=== PATIENT | male | born 1965 | race Caucasian/White ===

== ENCOUNTER 2023-03-17 06:04 | Emergency (ER) | payer OTHER, SELFPAY ==
[2023-03-17 06:10] VITALS: BP 177/86; PULSE 68; RESP 18; TEMP 36.4; O2SAT 97; BMI 31.8
--- NOTE | 2023-03-17 06:22 | CRLHL7_ITS ---
For Patients: As a result of the Century Cures Act, medical imaging exams and procedure reports are released immediately into your electronic medical record. You may view this report before your referring provider. If you have questions, please contact your health care provider. INDICATION: left flank pain since 15:30 yesterday TECHNIQUE: CT abdomen and pelvis without contrast, stone protocol. COMPARISON: December 16, 2022 FINDINGS: Kidney/ureters: Punctate bilateral intrarenal calculi. There is a 3 mm stone within the distal left ureter resulting in mild hydroureteronephrosis and periureteral inflammation. The bladder is decompressed. Liver/gallbladder/bile ducts: Hepatomegaly and hepatic steatosis. Gallbladder is normal without visualized stones or inflammation. No biliary dilatation. Spleen/pancreas/adrenal glands: Supraglottic calcified granuloma within the spleen. Adrenal glands and pancreas are within normal limits. GI tract: No evidence of bowel obstruction or inflammation. Normal appendix. Abdominal wall/omentum/peritoneum: No free air or significant free fluid. No mass or inflammation. Lymph nodes: No lymphadenopathy. Vessels: Abdominal aorta normal caliber with mild aortoiliac atherosclerosis. Pelvis: Unremarkable pelvis. Lower chest: Unremarkable. See IMPRESSION: There is a 3 mm stone within the distal left ureter resulting in mild hydroureteronephrosis and periureteral inflammation. Punctate bilateral intrarenal calculi. Please note that all CT scans at this facility use dose modulation, iterative reconstruction, and/or weight-based dosing when appropriate to reduce radiation dose to as low as reasonably achievable. Dictated by Lg Mason MD @ 03/17/2023 7:15:58 AM (Electronically Signed)
--- NOTE | 2023-03-17 06:24 | ED_ITS ---
HPI - General Adult General Chief complaint: Flank Pain Stated complaint: kidney stone Time Seen by Provider: 03/17/23 06:07 Source: patient Mode of arrival: ambulatory Limitations: no limitations History of Present Illness HPI narrative: 57-year-old male presents the emergency department with a 24 hour history of left flank pain. Reports that symptoms started yesterday morning and were initially intermittent. Did improve after he tried taking 3 ibuprofen but the pain has come back. Worsening overnight. It has traveled from the left posterior lower rib area to now the left lower back area that radiates into the left groin. He had 1 episode of hematuria yesterday but that has since resolved. Denies fever, denies nausea and vomiting. No injury or trauma. He has had kidney stones multiple times in the past and reports a history a lithotripsy and stenting as well. He has had an MRI of his lower back within the last few months but no recent CT scans. No dysuria, no urinary frequency. Nonsmoker. He also did try an [id number] pain reliever called kratom with no improvement. No bowel changes. Past medical history notable for hypertension. Home medications amlodipine and lisinopril. No known drug allergies. Nonsmoker. No pertinent travel. ROS is notable for the urinary symptoms as described above only, otherwise denies times 12 systems. Related Data Home Medications Medication Instructions Recorded Confirmed lisinopril 5 mg tablet 5 mg PO DAILY 03/17/23 03/17/23 Previous Rx's Medication Instructions Recorded amlodipine 5 mg tablet 5 mg PO DAILY #30 tabs 12/17/22 hydrocodone 5 mg-acetaminophen 325 1 tab PO Q6H PRN #10 tabs 12/17/22 mg tablet losartan 50 mg tablet 50 mg PO DAILY #30 tabs 12/17/22 methylprednisolone 4 mg tablets in See Rx Instructions PO .COMPLEX 12/17/22 a dose pack (Medrol (Kwame)) #21 ea Allergies Allergy/AdvReac Type Severity Reaction Status Date / Time No Known Drug Allergies Allergy Verified 12/16/22 12:05 [facility] Medical History Sleep apnea ?G47.30 - Sleep apnea, unspecified (ICD-10) Hepatic steatosis ?K76.0 - Fatty (change of) liver, not elsewhere classified (ICD-10) Chronic headaches ?R51.9 - Headache, unspecified (ICD-10) ?G89.29 - Other chronic pain (ICD-10) History of adenomatous polyp of colon ?Z86.010 - Personal history of colonic polyps (ICD-10) Nephrolithiasis ?N20.0 - Calculus of kidney (ICD-10) Sciatica ?M54.30 - Sciatica, unspecified side (ICD-10) Surgical History History of lithotripsy ?Z98.890 - Other specified postprocedural states (ICD-10) Family History Father Nephrolithiasis Other Lung cancer Social History Narrative: Patient lives with his and 10-year-old daughter in [place]. 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 Former history of smoking but does not currently smoke. Drinks alcohol about once a year. Does not use recreational drugs except he has occasionally used THC gummies to address his back pain. Highest level of school completed/degree received: high school graduate Smoking Status: Never smoker Do you use any of these nicotine containing products: None How often do you have a drink containing alcohol: monthly or less AUDIT-C Alcohol total score: 1 Non-prescribed substance use: denies use Caffeine: Yes service: No Exam Const: Vital Signs, click to edit/add: Vital Signs - 24 hr 03/17/23 06:10 03/17/23 06:25 Temperature 97.6 F 97.6 F Pulse Rate [Left P ulse Oximeter] 68 Respiratory Rate 18 Blood Pressure [Ri ght Upper Arm] 177/86 H Pulse Oximetry 97 Oxygen Delivery Me thod Room Air Documenting provider has reviewed patient's vital signs: yes Common normals: alert General appearance: cooperative and well kempt Orientation/consciousness: Yes awake Other: Good historian. Cooperative. Appears well nourished and hydrated but does seem to be in true pain. HENMT: Common normals: normocephalic Head and scalp: normocephalic Face and sinus: normal facial exam Mouth: oral and palatal mucosa normal Throat: posterior oropharynx normal Eye: Common normals: conjunctivae normal General eye: normal appearance of both eyes Conjunctiva: conjunctiva(e) normal Resp: Common normals: normal respiratory effort, no use of accessory muscles and clear to auscultation bilaterally Effort & inspection: able to speak in complete sentences Auscultation: clear to auscultation bilaterally Cardio: Common normals: regular rate, regular rhythm, S1 normal heart sound, S2 normal heart sound and no murmurs Rate: regular rate Rhythm: regular rhythm Heart sounds: S1 normal and S2 normal GI: Common normals: Normal to inspection, nondistended, normoactive bowel sounds present, soft to palpation, non-tender, no hepatosplenomegaly and no masses Palpation: soft and no hepatosplenomegaly Back & Pelvis: Other: Lumbar spine normal to appearance. No CVA tenderness. There is tenderness to palpation around the left mid lower back lateral area, no guarding. Extremity: Common normals: normal capillary refill and no pedal edema Neuro: Sensorium/orientation: awake and alert Speech: speech normal Gait (neuro): normal gait Psych: Common normals: thought process normal Appearance: well kempt Activity/motor behavior: appropriate eye contact Thought process: normal thought process Insight: insight good Judgement: judgment good Skin: Common normals: no rashes or lesions noted General skin exam: no rashes or lesions noted Course Course Hospital Course: Differential diagnosis including musculoskeletal pain, sciatica, constipation, intra-abdominal process, kidney stone, urinary infection, among others. High risk for kidney stone based on history, recommend pursuing this avenue 1st. Will [address] IV, give 50 mg of IV Toradol, 4 mg of Zofran. Await urinalysis. CT scan of abdomen and pelvis without contrast. Preliminary plan discussed with patient. Reevaluation(s) Time of Reevaluation #1: 07:36 Reevaluation #1: Labs and imaging findings reviewed with patient. 3 mm distal left ureteral stone as expected. There is some [id number] hydronephrosis but no signs of severe dysfunction. Good creatinine, no white count, no fever. He did get good pain relief from the Toradol. Counseled on pain management. He does have Flomax at home and took a dose yesterday. He is counseled to continue taking this once daily. Tylenol 1000 mg every 6 hours, Toradol 10 mg p.o. q.6 hours. Next eligible dose 1:00 p.m., discussed. Alarm symptoms reviewed that would warrant ED presentation. All questions answered. Vital Signs Vital signs: Initial Vital Signs Temperature 97.6 F 03/17/23 06:10 Temperature Source Temporal Artery Scan 03/17/23 06:10 Pulse Rate 68 03/17/23 06:10 Respiratory Rate 18 03/17/23 06:10 Blood Pressure 177/86 H 03/17/23 06:10 Blood Pressure Mean 116 H 03/17/23 06:10 Blood Pressure Position Sitting 03/17/23 06:10 Pulse Oximetry 97 03/17/23 06:10 Oxygen Delivery Method Room Air 03/17/23 06:10 Vital Signs Temperature 97.6 F 03/17/23 06:10 Pulse Rate 68 03/17/23 06:10 Respiratory Rate 18 03/17/23 06:10 Blood Pressure 177/86 H 03/17/23 06:10 Pulse Oximetry 97 03/17/23 06:10 Oxygen Delivery Method Room Air 03/17/23 06:10 Temperature 97.6 F 03/17/23 06:25 Pulse Rate 68 03/17/23 06:10 Respiratory Rate 18 03/17/23 06:10 Blood Pressure 177/86 H 03/17/23 06:10 Pulse Oximetry 97 03/17/23 06:10 Oxygen Delivery Method Room Air 03/17/23 06:10 Medical Decision Making Lab Data Lab results reviewed: Yes I reviewed the patient's lab results Lab results narrative: Reassuring Labs: Lab Results 03/17/23 Range/Units 06:22 WBC 5.32 (4.50-11.00) K/uL RBC 4.35 (4.30-5.90) m/uL Hgb 13.0 L (13.5-17.5) gm/dL Hct 38.8 (37.0-53.0) % MCV 89 (80-100) fL MCH 30 (26-34) pg MCHC 34 (32-36) gm/dL RDW Coeff of Danelle 12.6 (11.5-15.5) % Plt Count 191 (140-440) K/uL Neut % (Auto) 40.3 L (42.0-72.0) % Lymph % (Auto) 47.7 H (20-44) % [place] % (Auto) 8.8 (0.0-11.0) % Eos % (Auto) 2.6 (0.0-7.0) % Baso % (Auto) 0.6 (0.0-3.0) % Neut # (Auto) 2.10 (1.7-7.0) K/uL Lymph # (Auto) 2.50 (0.90-2.90) K/uL [place] # (Auto) 0.50 (0.00-0.90) K/UL Eos # (Auto) 0.14 (0.00-0.50) K/uL Baso # (Auto) 0.03 (0.00-0.30) K/uL Abs Immat Gran (auto) 0.00 (0.00-0.30) K/uL Imm/Tot Granulo (auto) 0.0 % Sodium 138 (135-149) mmol/L Potassium 4.0 (3.6-5.1) mmol/L Chloride 106 (96-114) mmol/L Carbon Dioxide 24 (20-32) mmol/L Anion Gap 8 (7-15) mEq/L BUN 24 (7-30) mg/dL Creatinine 0.8 (0.5-1.5) mg/dL Estimated Creat Clear 85.31 Estimated GFR 103 ml/min Glucose 122 H (60-115) mg/dL Calcium 8.5 (8.4-10.6) mg/dL C-Reactive Protein < 0.5 L (0.5-1.0) mg/dL Imaging Data CT scan - abdomen: Attestation: I have reviewed the pertinent imaging results. My impression: Small distal ureter stone, hydronephrosis noted Radiologist's impression: IMPRESSION: There is a 3 mm stone within the distal left ureter resulting in mild hydroureteronephrosis and periureteral inflammation. Punctate bilateral intrarenal calculi. Discharge Plan Discharge Clinical Impression: Calculus of distal left ureter Patient Disposition: Home w/ Parent or Adult Condition: Improved Instructions: Ureteral Stones (ED) Additional Instructions: As we discussed, you have a small kidney stone on your left side about [address] bladder[address] This is 3 mm in size and should pass without any intervention or complication. Typically these pass within a week. As we discussed, you should come back to the emergency room if you start having high fevers, severe weakness or severe pain. Some continued blood in your urine may be common. Your given Toradol for pain. I have given you a supply of this through the pharmacy vending machine as well. You are eligible for another dose of this at 1:00 p.m.. Keep taking the Toradol every 6 hours as needed for discomfort. You should also be taking Tylenol every 6 hours as well. Proper dosing of Tylenol as 1000 mg every 6 hours. It often works best to alternate between the 2 every 3 hours. You mention that you do still have some Flomax at home. Continue taking this once daily to help the stone pass. It will also help cut down on the spasm pain. Push fluids. You should be urinating at least 6 times daily. You do not need to strain your urine or returned this stone for analysis. You may return to full work duty. Activity Level: No Restrictions Discharge Diet: Regular Prescriptions: No Action hydrocodone-acetaminophen 5-325 mg Tablet 1 tab PO Q6H PRNQty: 10 0RF amlodipine 5 mg Tablet 5 mg PO DAILY Qty: 30 0RF losartan 50 mg tablet 50 mg PO DAILY Qty: 30 0RF methylprednisolone [Medrol (Kwame)] 4 mg tablets,dose pack See Rx Instructions .ROUTE .COMPLEX Qty: 21 0RF Rx Instructions: orally per package directions lisinopril 5 mg tablet 5 mg PO DAILY Follow Up/Referrals: Khanh Heard MD [Primary Care Provider] - Stand Alone Forms: [employer] Info Instructions
[2023-03-17 06:25] VITALS: TEMP 36.4
[2023-03-17] MEDS: KETOROLAC 15 MG/ML inj IVP (06:25)
[2023-03-17] MEDS: ONDANSETRON 2 MG/ML inj 4 MG IVP (06:32)
[2023-03-17 06:38] LABS: Basophils Absolute Auto 0.03 K/uL (0.00-0.30); Basophils Percent Auto 0.6 % (0.0-3.0); Eosinophils Absolute Auto 0.14 K/uL (0.00-0.50); Eosinophils Percent Auto 2.6 % (0.0-7.0); Hematocrit 38.8 % (37.0-53.0); Lymphocytes Percent Auto 47.7 % (20-44); Mean Corpuscular HGB Conc 34 gm/dL (32-36); Mean Corpuscular Hemoglobin 30 pg (26-34); Mean Corpuscular Volume 89 fL (80-100); Monocytes Percent Auto 8.8 % (0.0-11.0); Neutrophils Percent Auto 40.3 % (42.0-72.0); Platelet Count* 191 K/uL (140-440); RDW Coefficient of Variation % 12.6 % (11.5-15.5); Red Blood Count 4.35 m/uL (4.30-5.90); White Blood Count* 5.32 K/uL (4.50-11.00)
[2023-03-17 06:47] LABS: Slide Review Reflex No
[2023-03-17 06:52] LABS: Chloride* 106 mmol/L (96-114); Sodium* 138 mmol/L (135-149)
[2023-03-17 06:55] LABS: Creatinine* 0.8 mg/dL (0.5-1.5); Est. Creatinine Clearance* 85.31; Estimated Glomerular Filt Rate 103 ml/min
[2023-03-17 06:56] LABS: Anion Gap 8 mEq/L (7-15); Blood Urea Nitrogen* 24 mg/dL (7-30); Carbon Dioxide* 24 mmol/L (20-32); Glucose* 122 mg/dL (60-115)
[2023-03-17 06:57] LABS: Calcium* 8.5 mg/dL (8.4-10.6)
[2023-03-17 07:01] LABS: C Reactive Protein* < 0.5 mg/dL (0.5-1.0)
[2023-03-17 07:55] VITALS: BP 140/84; PULSE 65; RESP 16; TEMP 36.1; O2SAT 94
--- NOTE | 2023-03-17 07:56 | ED.NURSE ---
Patient discharged from ER. [facility] script for toradol provided. Work note for today provided. PIV taken out and catheter intact. All questions answered. Left via ambulatory.
[2023-03-17 07:59] LABS: Appearance Urine Clear (Clear); Bilirubin Urine Negative (Negative); Blood Urine 3+ (Negative); Color Urine Yellow (Yellow); Glucose Urine Negative (Negative); Ketones Urine Negative (Negative); Leukocyte Esterase Urine Negative (Negative); Nitrite Urine Negative (Negative); Protein Urine Negative (Negative); Specific Gravity Urine >= 1.030 (1.000-1.030); Urobilinogen Urine 0.2 (0.2-1.0); pH Urine 6.5 (5.0-8.5)
[2023-03-17 08:20] LABS: Bacteria Urine Few; Squamous Epithelial Cell Urine Few (None-Few)
[2023-03-17 08:21] LABS: Mucus Urine Few
== END 2023-03-17 07:57 | disposition home or self-care (01) ==
PROVIDERS: Emergency Provider Family Medicine; PCP Family Medicine
DX: N20.1 Calculus of ureter (principal)
CPT/HCPCS: 36415; 74176; 80048; 81003; 81015; 85025; 86140; 87086; 96374; 96375; 99284; J1885; J2405

== ENCOUNTER 2023-03-19 19:16 | Emergency (ER) | payer OTHER, SELFPAY ==
[2023-03-19 19:19] VITALS: BP 200/70; PULSE 86; RESP 22; TEMP 36.7; O2SAT 98; BMI 31.8
[2023-03-19] MEDS: OXYCODONE 5 MG TABLET PO (19:51)
[2023-03-19 20:06] VITALS: BP 148/109; PULSE 76; O2SAT 98
--- NOTE | 2023-03-19 20:09 | ED.GENADULT ---
HPI - General Adult General Date Seen: 03/19/23 Chief complaint: Flank Pain Stated complaint: Kidney stone Time Seen by Provider: 03/19/23 19:26 Source: patient Mode of arrival: ambulatory Limitations: no limitations History of Present Illness HPI narrative: Patient is a 57-year-old male with a history of kidney stones and hypertension presented emergency department for left flank pain. His in emergency department 2 days ago and was diagnosed with a 3 mm nephrolithiasis with hydronephrosis on the left. He was sent home on Toradol he says the Toradol does not help with his pain at all and just makes him dizzy. States he cannot get the pain under control at this time. Has had multiple kidney stones in the past since. Denies seen a urologist at this time. Previously has seen male clinic and has had multiple lithotripsies done. Patient denies any dysuria, fevers, chills, chest pain, shortness of breath, weakness, numbness, diarrhea, constipation. The states he had episode of left groin pain earlier today that has since resolved. States the pain today seems worse than it did 2 days ago. Related Data Home Medications Medication Instructions Recorded Confirmed lisinopril 5 mg tablet 5 mg PO DAILY 03/17/23 03/17/23 Previous Rx's Medication Instructions Recorded amlodipine 5 mg tablet 5 mg PO DAILY #30 tabs 12/17/22 hydrocodone 5 mg-acetaminophen 325 1 tab PO Q6H PRN #10 tabs 12/17/22 mg tablet losartan 50 mg tablet 50 mg PO DAILY #30 tabs 12/17/22 methylprednisolone 4 mg tablets in See Rx Instructions PO .COMPLEX 12/17/22 a dose pack (Medrol (Kwame)) #21 ea Allergies Allergy/AdvReac Type Severity Reaction Status Date / Time No Known Drug Allergies Allergy Verified 03/19/23 19:21 [facility] Medical History Sleep apnea ?G47.30 - Sleep apnea, unspecified (ICD-10) Hepatic steatosis ?K76.0 - Fatty (change of) liver, not elsewhere classified (ICD-10) Chronic headaches ?R51.9 - Headache, unspecified (ICD-10) ?G89.29 - Other chronic pain (ICD-10) History of adenomatous polyp of colon ?Z86.010 - Personal history of colonic polyps (ICD-10) Nephrolithiasis ?N20.0 - Calculus of kidney (ICD-10) Sciatica ?M54.30 - Sciatica, unspecified side (ICD-10) Surgical History History of lithotripsy ?Z98.890 - Other specified postprocedural states (ICD-10) Family History Father Nephrolithiasis Other Lung cancer Social History Narrative: Patient lives with his and 10-year-old daughter in [place]. 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 Former history of smoking but does not currently smoke. Drinks alcohol about once a year. Does not use recreational drugs except he has occasionally used THC gummies to address his back pain. Highest level of school completed/degree received: high school graduate Smoking Status: Never smoker Do you use any of these nicotine containing products: None How often do you have a drink containing alcohol: monthly or less AUDIT-C Alcohol total score: 1 Non-prescribed substance use: denies use Caffeine: Yes service: No Exam Narrative: Exam Narrative: Const: Well-nourished, Well-developed, in moderate distress Eyes: PERRL, no conjunctival injection, and symmetrical lids ENMT: Atraumatic external nose and ears. Moist mucous membranes. Neck: Symmetric, trachea midline, No thyromegaly. CVS: RRR, No murmurs or gallops. Peripheral pulses 2+ and equal in all extremities RESP: Unlabored respiratory effort. Clear to auscultation bilaterally. GI: Nontender/Nondistended, No rebound or guarding. Left CVA tenderness MSK:Extremities w/o deformity, Normal Active ROM Skin: Warm, Dry. No rashes or lesions. Neuro: Normal Muscle tone, No focal neurological deficits. Psych: Awake, Alert, & Oriented x3. Appropriate mood and affect. Const: Vital Signs, click to edit/add: Vital Signs - 24 hr 03/19/23 19:19 03/19/23 20:06 Temperature 98.0 F Pulse Rate [Right Pulse Oximeter] 86 76 Respiratory Rate 22 Blood Pressure [Ri ght Upper Arm] 200/70 H 148/109 H Pulse Oximetry 98 98 Oxygen Delivery Me thod Room Air Room Air Course Vital Signs Vital signs: Initial Vital Signs Temperature 98.0 F 03/19/23 19:19 Temperature Source Temporal Artery Scan 03/19/23 19:19 Pulse Rate 86 03/19/23 19:19 Pulse Rhythm Regular 03/19/23 19:19 Pulse Strength 3+ Normal 03/19/23 19:19 Respiratory Rate 22 03/19/23 19:19 Blood Pressure 200/70 H 03/19/23 19:19 Blood Pressure Mean 113 H 03/19/23 19:19 Blood Pressure Position Sitting 03/19/23 19:19 Pulse Oximetry 98 03/19/23 19:19 Oxygen Delivery Method Room Air 03/19/23 19:19 Vital Signs Temperature 98.0 F 03/19/23 19:19 Pulse Rate 86 03/19/23 19:19 Respiratory Rate 22 03/19/23 19:19 Blood Pressure 200/70 H 03/19/23 19:19 Pulse Oximetry 98 03/19/23 19:19 Oxygen Delivery Method Room Air 03/19/23 19:19 Temperature 98.0 F 03/19/23 19:19 Pulse Rate 76 03/19/23 20:06 Respiratory Rate 22 03/19/23 19:19 Blood Pressure 148/109 H 03/19/23 20:06 Pulse Oximetry 98 03/19/23 20:06 Oxygen Delivery Method Room Air 03/19/23 20:06 Medical Decision Making [facility] Narrative Medical decision making narrative: Patient is a 57-year-old male presenting emergency department for left flank pain. He has a known 3 mm kidney stone seen on previous CT 2 days prior. Says the Toradol he was discharged home with is not managing his pain adequately. He is not having any systemic symptoms at this time. To do this I do not believe lab work is necessary or repeat imaging. The kidney stone is small and most of likely does not need any intervention on signs and pain control. An oral oxycodone was given. This mildly improved his symptoms. Since he still having a moderate amount of pain we will also try some Toradol. After the Toradol he is feeling much better and is agreeable for discharge. She will be sent oxycodone through [facility]. He is agreeable to this plan. Discharge Plan Discharge Clinical Impression: Calculus of distal left ureter Patient Disposition: Home, Self-Care Condition: Stable Instructions: Ureteral Stones (ED) Additional Instructions: He can take the oxycodone along with the Toradol or ibuprofen for pain. Do not take Toradol and ibuprofen at the same time. Follow-up with the urologist. Return for new worsening symptoms. Prescriptions: No Action hydrocodone-acetaminophen 5-325 mg Tablet 1 tab PO Q6H PRNQty: 10 0RF amlodipine 5 mg Tablet 5 mg PO DAILY Qty: 30 0RF losartan 50 mg tablet 50 mg PO DAILY Qty: 30 0RF methylprednisolone [Medrol (Kwame)] 4 mg tablets,dose pack See Rx Instructions .ROUTE .COMPLEX Qty: 21 0RF Rx Instructions: orally per package directions lisinopril 5 mg tablet 5 mg PO DAILY Follow Up/Referrals: JOHANNA HAWKINS DO [Primary Care Provider] - Stand Alone Forms: [employer] Info Instructions
[2023-03-19] MEDS: KETOROLAC 15 MG/ML inj IVP (20:50)
[2023-03-19 21:11] VITALS: BP 137/79
== END 2023-03-19 21:15 | disposition home or self-care (01) ==
PROVIDERS: Emergency Provider Student in an Organized Health Care Education/Training Program; PCP Student in an Organized Health Care Education/Training Program
DX: N20.1 Calculus of ureter (principal)
CPT/HCPCS: 36415; 96374; 99283; A9270; J1885

== ENCOUNTER 2023-09-06 21:14 | Emergency (ER) | payer OTHER, SELFPAY ==
[2023-09-06] VITALS (9 sets, daily range): BP systolic 137–168; BP diastolic 81–88; PULSE 64–74; RESP 18; TEMP 36.6; O2SAT 93–97; BMI 31.8
--- NOTE | 2023-09-06 21:56 | XR_ITS ---
Final Report Patient: DENISE DELCID Facility:?[facility] Patient ID:?[id number] Site Patient ID:?[id number]. Site :?[id number] Study:?XRay Chest 2V-09/06/2023 11:32:37 PM Ordering Physician:IVANA Final Report: INDICATION: Chest pain TECHNIQUE: Chest radiograph 2 views COMPARISON: None FINDINGS: Mediastinum: The mediastinum is normal in appearance. The heart silhouette is normal in size and morphology. Lung: Small lung volumes are present with mild infrahilar subsegmental atelectasis bilaterally. No sign of pleural effusion seen. No pneumothorax is identified. Bone and Soft tissue: Unremarkable for age. IMPRESSION: 1. Small lung volumes are present with mild infrahilar subsegmental atelectasis bilaterally. Dictated by Elias Brennan MD @ 09/06/2023 11:37:57 PM Dictated by: Elias Brennan MD @ 09/06/2023 23:38:05 (Electronic Signature)
[2023-09-06 22:04] LABS: Basophils Absolute Auto 0.03 K/uL (0.00-0.30); Basophils Percent Auto 0.4 % (0.0-3.0); Eosinophils Absolute Auto 0.13 K/uL (0.00-0.50); Eosinophils Percent Auto 1.9 % (0.0-7.0); Hematocrit 40.9 % (37.0-53.0); Immature Granulocytes Abs Auto 0.01 K/uL (0.00-0.30); Immature Granulocytes Pct Auto 0.1 %; Lymphocytes Percent Auto 57.8 % (20-44); Mean Corpuscular HGB Conc 34 gm/dL (32-36); Mean Corpuscular Hemoglobin 30 pg (26-34); Mean Corpuscular Volume 89 fL (80-100); Monocytes Percent Auto 7.6 % (0.0-11.0); Neutrophils Percent Auto 32.2 % (42.0-72.0); Platelet Count* 193 K/uL (140-440); RDW Coefficient of Variation % 12.7 % (11.5-15.5); Red Blood Count 4.62 m/uL (4.30-5.90); White Blood Count* 6.95 K/uL (4.50-11.00)
[2023-09-06 22:06] LABS: Slide Review Reflex No
[2023-09-06] MEDS: ASPIRIN 81 MG TAB.CHEW 324 MG PO (22:08)
[2023-09-06 22:12] LABS: Albumin* 4.6 g/dL (3.3-5.0); Chloride* 103 mmol/L (96-114)
[2023-09-06 22:13] LABS: INR 0.91 (0.91-1.10); Potassium* 3.5 mmol/L (3.6-5.1); Prothrombin Time 12.8 Seconds; Sodium* 137 mmol/L (135-149)
[2023-09-06 22:14] LABS: Partial Thromboplastin Time* 29 Seconds (23-33)
[2023-09-06 22:15] LABS: Alkaline Phosphatase* 86 U/L (40-150); Anion Gap 12 mEq/L (7-15); Aspartate Amino Transferase* 31 U/L (12-35); Bilirubin Direct* 0.1 mg/dL (0.0-0.5); Bilirubin Total* 0.4 mg/dL (0.1-1.5); Blood Urea Nitrogen* 22 mg/dL (7-30); Carbon Dioxide* 22 mmol/L (20-32); Creatinine* 0.7 mg/dL (0.5-1.5); Est. Creatinine Clearance* 97.49; Estimated Glomerular Filt Rate 107 ml/min; Total Protein* 8.1 g/dL (6.0-8.3)
[2023-09-06 22:16] LABS: Alanine Aminotransferase* 44 U/L (4-50); Calcium* 9.4 mg/dL (8.4-10.6); Glucose* 174 mg/dL (60-115); Lipase* 289 U/L (23-300)
[2023-09-06 22:17] LABS: D Dimer Quantitative* 0.35 ug/ml (0.00-0.50)
[2023-09-06] MEDS: 0.9 % SODIUM CHLORIDE 1000 ml 1,000 ML IV (22:26)
[2023-09-06 22:37] LABS: NT Pro B Type NatriureticPept* < 20 pg/mL
[2023-09-06 22:47] LABS: PCR FLU A Negative PCR FLU A (Negative); PCR FLU B Negative PCR FLU B (Negative); PCR RSV Negative PCR RSV (Negative); SARS PCR* Negative SARS-CoV-2 (Negative)
--- NOTE | 2023-09-06 22:52 | ED.CHESTPAIN ---
HPI - Chest Pain General Date Seen: 09/06/23 Chief Complaint: Chest Pain Stated Complaint: chest pain Time Seen by Provider: 09/06/23 21:22 Source: patient and family Mode of arrival: ambulatory Limitations: no limitations History of Present Illness HPI narrative: Patient is a 57-year-old gentleman who presents here with his family for chest pain, and high blood pressure he was at home approximately 2-1/2 hours ago and noted he had some chest pain across his chest this occurred at rest, his was associated with elevation of his blood pressure up into the 160 range, he took an extra dose of his lisinopril 5 mg for this. And checked his blood pressure again he reports to me that his chest pain is improved, he does not have any pain that goes to his back or up into his neck or into his arms adjust sits on his chest, not made worse by taking deep breaths and coughing or other issues. Denies any radiation to his back associated with this. Does not feel like he syncopal and has no shortness of breath. No pre-existing history of any coronary artery disease, but does have risk factors including stop smoking 11 years ago, hypertension, prediabetes, elevated cholesterol, and a family history of his father having cardiac issues in his 60s. MD complaint: chest pain Prior episodes: No Onset: during rest Treatment prior to arrival: none Risk Factors Thoracic aortic dissection risk factors: none Related Data Home Medications Medication Instructions Recorded Confirmed lisinopril 5 mg tablet 5 mg PO DAILY 03/17/23 03/17/23 Previous Rx's Medication Instructions Recorded amlodipine 5 mg tablet 5 mg PO DAILY #30 tabs 12/17/22 Allergies Allergy/AdvReac Type Severity Reaction Status Date / Time No Known Drug Allergies Allergy Verified 03/19/23 19:21 Review of Systems Status of ROS Reports: 10 or more systems reviewed and unremarkable except as noted in History and below [facility] Medical History Sleep apnea ?G47.30 - Sleep apnea, unspecified (ICD-10) Hepatic steatosis ?K76.0 - Fatty (change of) liver, not elsewhere classified (ICD-10) Chronic headaches ?R51.9 - Headache, unspecified (ICD-10) ?G89.29 - Other chronic pain (ICD-10) History of adenomatous polyp of colon ?Z86.010 - Personal history of colonic polyps (ICD-10) Nephrolithiasis ?N20.0 - Calculus of kidney (ICD-10) Sciatica ?M54.30 - Sciatica, unspecified side (ICD-10) Surgical History History of lithotripsy ?Z98.890 - Other specified postprocedural states (ICD-10) Family History Father Nephrolithiasis Other Lung cancer Social History Narrative: Patient lives with his and 10-year-old daughter in [place]. 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 Former history of smoking but does not currently smoke. Drinks alcohol about once a year. Does not use recreational drugs except he has occasionally used THC gummies to address his back pain. Highest level of school completed/degree received: high school graduate Smoking Status: Former smoker Do you use any of these nicotine containing products: None How often do you have a drink containing alcohol: monthly or less AUDIT-C Alcohol total score: 1 Non-prescribed substance use: denies use Caffeine: Yes service: No Exam Narrative Exam Narrative: Patient is seen in room 5 he is in no apparent distress his pupils are equal round reactive to light there is no scleral icterus redness is TMs are normal his oropharynx is normal, cranial nerves 3-12 are normal his neck is supple full range of motion with no lymphadenopathy, chest is good air entry bilateral with no wheezing crackles noted his heart sounds are normal no clicks murmurs or gallops his abdomen is soft and obese there is no guarding no organomegaly bowel sounds are normal there is no CVA tenderness, he moves all extremities independently well with absence of any edema swelling of his lower extremities, negative Homans sign normal pulses, he is neurologically intact in his upper lower extremities and symmetrical bilaterally. Const Vital Signs, click to edit/add: Vital Signs - 24 hr 09/06/23 21:29 09/06/23 21:36 09/06/23 21:45 Temperature 97.8 F Pulse Rate 70 68 Pulse Rate [Pulse Oximeter] 68 Respiratory Rate 18 Blood Pressure Blood Pressure [Right Upper Arm] 168/88 H Pulse Oximetry 96 96 97 Oxygen Delivery Method Room Air 09/06/23 22:00 09/06/23 22:15 09/06/23 22:25 Temperature Pulse Rate 73 74 72 Pulse Rate [Pulse Oximeter] Respiratory Rate Blood Pressure 143/87 H Blood Pressure [Right Upper Arm] Pulse Oximetry 95 93 93 Oxygen Delivery Method 09/06/23 22:30 09/06/23 22:42 09/06/23 22:45 Temperature Pulse Rate 71 64 67 Pulse Rate [Pulse Oximeter] Respiratory Rate Blood Pressure 137/81 Blood Pressure [Right Upper Arm] Pulse Oximetry 93 94 95 Oxygen Delivery Method Documenting provider has reviewed patient's vital signs: yes Course Course ED Course: Patient had no further chest pain, EKG 2nd did not show any acute changes, 2nd troponin was 000s, at this point I believe we can safely discharge him home, he will take 81 mg of aspirin, and follow-up within the next 10 days with his primary care he was reassured by his blood pressure coming down nicely. I think it would however if he has increased chest pain to come back and be seen, he does have some significant risk factors that he needs to work on. Vital Signs Vital signs: Initial Vital Signs Temperature 97.8 F 09/06/23 21:29 Temperature Source Temporal Artery Scan 09/06/23 21:29 Pulse Rate 68 09/06/23 21:29 Pulse Rhythm Regular 09/06/23 21:29 Respiratory Rate 18 09/06/23 21:29 Blood Pressure 168/88 H 09/06/23 21:29 Blood Pressure Mean 114 H 09/06/23 21:29 Blood Pressure Position Sitting 09/06/23 21:29 Pulse Oximetry 96 09/06/23 21:29 Oxygen Delivery Method Room Air 09/06/23 21:29 Vital Signs Temperature 97.8 F 09/06/23 21:29 Pulse Rate 68 09/06/23 21:29 Respiratory Rate 18 09/06/23 21:29 Blood Pressure 168/88 H 09/06/23 21:29 Pulse Oximetry 96 09/06/23 21:29 Oxygen Delivery Method Room Air 09/06/23 21:29 Temperature 97.8 F 09/06/23 21:29 Pulse Rate 67 09/06/23 22:45 Respiratory Rate 18 09/06/23 21:29 Blood Pressure 137/81 09/06/23 22:42 Pulse Oximetry 95 09/06/23 22:45 Oxygen Delivery Method Room Air 09/06/23 21:29 Medications Administered Medications: Discontinued Medications Generic Name Dose Route Start Last Admin Trade Name Roberto PRN Reason Stop Dose Admin Aspirin 324 mg 09/06/23 21:55 09/06/23 22:08 Aspirin 81 Mg Tab.Chew PO 09/06/23 21:56 324 mg ONCE ONE Administration Sodium Chloride 1,000 mls @ 1,000 mls/hr 09/06/23 22:00 09/06/23 23:23 0.9 % Sodium Chloride 1000 Ml IV 09/06/23 22:59 Infused .Q1H ISAEL Infusion MDM - Chest Pain MDM Narrative Medical decision making narrative: During the evaluation of this patient I considered multiple differential diagnosis is. The life-threatening differential diagnosis include coronary disease/TX, pulmonary embolism, pneumothorax, pneumonia, and aortic dissection. Other differential diagnosis included but were not limited to pericarditis, myocarditis, chest wall pain, GERD, esophageal rupture, rib fracture contusion, pleurisy, as well as other etiologies. Medical Records Data Attestation: I reviewed the patient's medical records. Lab Data Attestation: I reviewed the patient's lab results. Labs: Lab Results 09/06/23 09/06/23 09/06/23 Range/Units 21:45 21:56 22:04 WBC 6.95 (4.50-11.00) K/uL RBC 4.62 (4.30-5.90) m/uL Hgb 14.0 (13.5-17.5) gm/dL Hct 40.9 (37.0-53.0) % MCV 89 (80-100) fL MCH 30 (26-34) pg MCHC 34 (32-36) gm/dL RDW Coeff of Danelle 12.7 (11.5-15.5) % Plt Count 193 (140-440) K/uL Neut % (Auto) 32.2 L (42.0-72.0) % Lymph % (Auto) 57.8 H (20-44) % Bulloch % (Auto) 7.6 (0.0-11.0) % Eos % (Auto) 1.9 (0.0-7.0) % Baso % (Auto) 0.4 (0.0-3.0) % Neut # (Auto) 2.20 (1.7-7.0) K/uL Lymph # (Auto) 4.00 H (0.90-2.90) K/uL Bulloch # (Auto) 0.50 (0.00-0.90) K/UL Eos # (Auto) 0.13 (0.00-0.50) K/uL Baso # (Auto) 0.03 (0.00-0.30) K/uL Abs Immat Gran (auto) 0.01 (0.00-0.30) K/uL Imm/Tot Granulo (auto) 0.1 % INR 0.91 (0.91-1.10) APTT 29 (23-33) Seconds D-Dimer Quant (PE/DVT) 0.35 (0.00-0.50) ug/ml Sodium 137 (135-149) mmol/L Potassium 3.5 L (3.6-5.1) mmol/L Chloride 103 (96-114) mmol/L Carbon Dioxide 22 (20-32) mmol/L Anion Gap 12 (7-15) mEq/L BUN 22 (7-30) mg/dL Creatinine 0.7 (0.5-1.5) mg/dL Estimated Creat Clear 97.49 Estimated GFR 107 ml/min Glucose 174 H (60-115) mg/dL Calcium 9.4 (8.4-10.6) mg/dL Total Bilirubin 0.4 (0.1-1.5) mg/dL Direct Bilirubin 0.1 (0.0-0.5) mg/dL AST 31 (12-35) U/L ALT 44 (4-50) U/L Alkaline Phosphatase 86 (40-150) U/L NT-Pro-B Natriuret Pep < 20 pg/mL Total Protein 8.1 (6.0-8.3) g/dL Albumin 4.6 (3.3-5.0) g/dL Lipase 289 (23-300) U/L SARS-CoV-2 (PCR) Negative SARS-CoV-2 (Negative) Influenza Type A (PCR) Negative PCR FLU A (Negative) Influenza Type B (PCR) Negative PCR FLU B (Negative) RSV (PCR) Negative PCR RSV (Negative) POC Troponin I 0.00 L (0.01-0.04) ng/ml 09/06/23 Range/Units 23:55 WBC (4.50-11.00) K/uL RBC (4.30-5.90) m/uL Hgb (13.5-17.5) gm/dL Hct (37.0-53.0) % MCV (80-100) fL MCH (26-34) pg MCHC (32-36) gm/dL RDW Coeff of Danelle (11.5-15.5) % Plt Count (140-440) K/uL Neut % (Auto) (42.0-72.0) % Lymph % (Auto) (20-44) % Bulloch % (Auto) (0.0-11.0) % Eos % (Auto) (0.0-7.0) % Baso % (Auto) (0.0-3.0) % Neut # (Auto) (1.7-7.0) K/uL Lymph # (Auto) (0.90-2.90) K/uL Bulloch # (Auto) (0.00-0.90) K/UL Eos # (Auto) (0.00-0.50) K/uL Baso # (Auto) (0.00-0.30) K/uL Abs Immat Gran (auto) (0.00-0.30) K/uL Imm/Tot Granulo (auto) % INR (0.91-1.10) APTT (23-33) Seconds D-Dimer Quant (PE/DVT) (0.00-0.50) ug/ml Sodium (135-149) mmol/L Potassium (3.6-5.1) mmol/L Chloride (96-114) mmol/L Carbon Dioxide (20-32) mmol/L Anion Gap (7-15) mEq/L BUN (7-30) mg/dL Creatinine (0.5-1.5) mg/dL Estimated Creat Clear Estimated GFR ml/min Glucose (60-115) mg/dL Calcium (8.4-10.6) mg/dL Total Bilirubin (0.1-1.5) mg/dL Direct Bilirubin (0.0-0.5) mg/dL AST (12-35) U/L ALT (4-50) U/L Alkaline Phosphatase (40-150) U/L NT-Pro-B Natriuret Pep pg/mL Total Protein (6.0-8.3) g/dL Albumin (3.3-5.0) g/dL Lipase (23-300) U/L SARS-CoV-2 (PCR) (Negative) Influenza Type A (PCR) (Negative) Influenza Type B (PCR) (Negative) RSV (PCR) (Negative) POC Troponin I 0.00 L (0.01-0.04) ng/ml Imaging Data Chest x-ray: Attestation: I have reviewed the pertinent imaging results. My impression: Negative chest X Radiologist's impression: atient: DENISE DELCID Facility:?[facility] Patient ID:?[id number] Site Patient ID:?[id number]. Site :?[id number] Study:?XRay Chest 2V-09/06/2023 11:32:37 PM Ordering Physician:IVANA Final Report: INDICATION: Chest pain TECHNIQUE: Chest radiograph 2 views COMPARISON: None FINDINGS: Mediastinum: The mediastinum is normal in appearance. The heart silhouette is normal in size and morphology. Lung: Small lung volumes are present with mild infrahilar subsegmental atelectasis bilaterally. No sign of pleural effusion seen. No pneumothorax is identified. Bone and Soft tissue: Unremarkable for age. IMPRESSION: 1. Small lung volumes are present with mild infrahilar subsegmental atelectasis bilaterally. Dictated by Elias Brennan MD @ 09/06/2023 11:37:57 PM Dictated by: Elias Brennan MD @ 09/06/2023 23:38:05 (Electronic Signature) ECG Data Attestation: I personally reviewed and interpreted this ECG as follows: ECG interpretation date: 09/06/23 Interpretation: EKG shows normal sinus rhythm with a normal EKG, with a ventricular rate of 61 there is no acute ST wave changes noted. Discharge Plan Discharge Clinical Impression: Chest pain, Hypertension Patient Disposition: Home w/ Parent or Adult Condition: Stable Instructions: Chest Pain (DC), Chronic Hypertension (DC) Additional Instructions: Patient needs follow-up with primary care, to check on his blood pressure, and also possibly for a stress echo test. Recommended that this be done in the next week to 10 days. Return here for current chest pain shortness of breath or other issues. Stay on 1 baby aspirin a day until you see your primary physician. Activity Level: Light activity Discharge Diet: Diabetic Prescriptions: No Action amlodipine 5 mg Tablet 5 mg PO DAILY Qty: 30 0RF lisinopril 5 mg tablet 5 mg PO DAILY Follow Up/Referrals: JOHANNA HAWKINS DO [Primary Care Provider] - Stand Alone Forms: [employer] Safety Info Instructions
== END 2023-09-07 01:01 | disposition home or self-care (01) ==
PROVIDERS: Emergency Provider Family Medicine; PCP Student in an Organized Health Care Education/Training Program
DX: R07.9 Chest pain, unspecified (principal); I10 Essential (primary) hypertension
CPT/HCPCS: 36415; 71046; 80048; 80076; 83690; 83880; 84484; 85025; 85379; 85610; 85730; 87631; 93005; 94761; 99284; 99285; A9270; J7030